=== PATIENT | female | born 1945 | race Asian ===

== ENCOUNTER → 2017-02-17 | Outpatient (CLI) | payer BC ==
[~2017-02-17] MED LIST: ATOR10TA69 PO; CHOL500010 PO; LOSA100T3 PO; MECL12.584 PO
== END | disposition home or self-care (01) ==
LOC: MAMMO 10:34
PROVIDERS: ATTEND Internal Medicine
DX: M81.0 Age-related osteoporosis without current pathological fracture (principal)
CPT/HCPCS: 77080

== ENCOUNTER 2018-09-18 11:16 | Emergency (ER) | payer BC, OTHER ==
[~2018-09-18] VITALS: Ht 157.5 cm; Wt 63.0 kg
[2018-09-18 13:30] VITALS: BP 149/81
== END 2018-09-18 13:45 | disposition home or self-care (01) ==
LOC: ER 11:16
DX: S80.02XA Contusion of left knee, initial encounter (principal); S20.211A Contusion of right front wall of thorax, initial encounter; I10 Essential (primary) hypertension; M85.88 Other specified disorders of bone density and structure, other site; W01.0XXA Fall on same level from slipping, tripping and stumbling without subsequent striking against object, initial encounter; Y93.89 Activity, other specified; Y92.89 Other specified places as the place of occurrence of the external cause; Y99.8 Other external cause status; Z88.3 Allergy status to other anti-infective agents
CPT/HCPCS: 71101; 73562; 99283